=== PATIENT | female | born 1975 | race Caucasian/White ===

== ENCOUNTER 2021-11-26 08:34 | Emergency (ER) | payer SELFPAY ==
[~2021-11-26] VITALS: Ht 162.6 cm; Wt 87.9 kg
[2021-11-26] MEDS ORDERED: cloNIDine HCL 0.1 MG TAB PO ONE (09:00)
[2021-11-26 09:51] LABS: Basophils # (auto) 0.1 10 ^3/uL (0-0.2); Basophils % (auto) 0.8 % (0.0-2.0); Eosinophils # (auto) 0.2 10 ^3/uL (0-0.8); Mean Corpuscular Hemoglobin 25.3 pg (28.0-32.0); Monocytes # (auto) 0.6 10 ^3/uL (0-1.3); Neutrophils # (auto) 5.8 10 ^3/uL (1.6-8.6)
[2021-11-26 09:56] LABS: Eosinophils % (auto) 2.8 % (0.0-7.0); Hematocrit 38.2 % (36.0-46.0); Hemoglobin 12.1 g/dL (12.2-16.2); Lymphocytes # (auto) 1.9 10 ^3/uL (0.4-5.4); Lymphocytes % (auto) 21.7 % (10.0-50.0); Mean Corpuscular Hgb Conc. 31.7 g/dL (32.0-36.0); Monocytes % (auto) 6.9 % (0.0-12.0); Neutrophils % (auto) 67.8 % (37.0-80.0); Red Blood Cells 4.77 10^6/uL (4.0-5.20); Red Cell Distribution Width 16.5 % (11.8-14.3); White Blood Cell 8.6 10^3/uL (4.4-10.8)
[2021-11-26 10:00] LABS: Urine Bacteria NONE SEEN /hpf (None Seen); Urine Blood 3+ /uL (Negative); Urine Specific Gravity 1.007 (1.001-1.035); Urine WBC 1 /hpf (0 - 5)
[2021-11-26 10:14] LABS: Albumin 3.9 g/dL (3.4-5.0); Calcium 8.8 mg/dL (8.5-10.1); Potassium 4.2 mmol/L (3.5-5.1)
[2021-11-26 10:20] LABS: BUN/Creatinine Ratio 9.3; Bilirubin, Total 0.3 mg/dL (0.2-1.0); Total Protein 7.4 g/dL (6.4-8.2)
[2021-11-26] MEDS ORDERED: AML5T PO (14:17)
[2021-11-26 14:48] VITALS: BP 163/100
== END 2021-11-26 14:15 | disposition home or self-care (01) ==
LOC: ER 08:34
DX: I16.0 Hypertensive urgency (principal)
CPT/HCPCS: 36415; 71045; 80053; 81001; 81025; 84484; 85025; 93005